=== PATIENT | male | born 1955 | race Caucasian/White ===

== ENCOUNTER → 2018-02-15 | Day surgery (SDC) | payer OTHER ==
[~2018-02-15] VITALS: Ht 177.8 cm; Wt 93.0 kg
[~2018-02-15] MED LIST: ASPI81TA23 PO; BUPIVACAINE HCL PF 0.5% 10 ML VIAL ONE; CEPH-460 PO; CHLORHEXIDINE GLUCONATE 2 % 1 PACK (2 CLOTHS) TOPICAL PRN; HYDR-3288 PO; LACTATED RINGER'S 1000 ML IV PRN; LIDOCAINE HCL 2% 50 ML VIAL ONE; LISI-519 PO; METF1000 PO; METOPROLOL TARTRATE 25 MG TAB PO PRN; MIDAZOLAM HCL 2 MG/2 ML VIAL ONE; NEOMYCIN/POLYMYXIN 1 ML G.U. IRRIGANT ONE; POVIDONE IODINE 5% (ANTISEPSIS KIT) 4 APPLICATIONS EACH NARE PRN; PRAV20TA2 PO; SODIUM CHLORID 0.9% 500 ML IV PRN
[2018-02-15] MEDS: ceFAZolin 1,000 MG/NS 100 ML IV SCH ×2 (09:00)
--- NOTE | 2018-02-15 10:22 | MP ---
cc: Kuldeep Vital MD DATE OF OPERATION: 02/15/2018 PREOPERATIVE DIAGNOSIS: Left thumb trigger finger. PROCEDURE: Left thumb A1 bayron release. SURGEON: Kuldeep Vital III, MD PROCEDURE: The patient was brought to the operating room, placed supine on the operating table. After the correct site and side of surgery were verified by members of each team in the room multiple times including the patient and myself, and after adequate preoperative markings, preoperative written consent was verified by everyone, and after adequate preoperative time-out was performed to everyone's satisfaction, after adequate IV sedation had been achieved, the left upper extremity was prepped and draped in traditional sterile surgical fashion. A 50/50 mixture of 2% plain lidocaine and 0.5% plain Marcaine was infiltrated into the skin and subcutaneous tissue near the A1 bayron in the metacarpal flexion crease. The limb was exsanguinated with an Ortega wrap, highly placed, well padded axillary tourniquet at 200 mmHg for a total of 9 minutes. A transversely oriented incision within the skin crease was made, carried down through skin and subcutaneous tissue. Blunt dissection was performed. The A1 bayron was identified. It was very thick, inflamed and redundant. It was divided in its entirety, freeing the flexor tendon which was otherwise uncompromised. Exploration proximally did not reveal any crossing band of the tissue. The bone moved freely. At this time thorough irrigation with 1 liter's worth of saline was performed. The skin edges were reapproximated using interrupted 4-0 nylon sutures. The hand and arm were thoroughly cleansed and dried. Betadine and Adaptic dressing was applied on top of the wound, followed by a bulky, soft dressing and a circumferential Ortega wrap loosely placed. The axillary tourniquet was released. The hand and all fingers including the thumb became immediately soft pink, warm and had a brisk capillary refill of less than 2 seconds. The patient was awakened from anesthesia and transported to the Postanesthesia Care Unit awake and in stable condition at the end of the case. MD REYNA Escalona/ALMAZ , 10:07 AM , 10:21 AM
[2018-02-15 10:50] VITALS: BP 104/68; PULSE 74; RESP 16; TEMP 98; O2SAT 98
--- NOTE | 2018-02-15 19:59 | EKG ---
Date Performed: 02/15/2018 Time Performed: 08:12:23 PTAGE: 62 years EKG: Sinus rhythm MARKED LEFT AXIS DEVIATION ABNORMAL ECG Since the PREVIOUS TRACING , no significant change noted PREVIOUS TRACIN09/24/2008 08.02 DOCTOR: Lj Painting Interpretating Date/Time 02/15/2018 19:57:47
== END | disposition home or self-care (01) ==
LOC: PHSDC 06:11
PROVIDERS: ATTEND Orthopaedic Surgery Hand Surgery
DX: M65.312 Trigger thumb, left thumb (principal); R94.31 Abnormal electrocardiogram [ECG] [EKG]
CPT/HCPCS: 01810; 26055; 93005; J0690; J2250; J3010; J7120